=== PATIENT | male | born 1955 | race Caucasian/White ===

== ENCOUNTER 2017-02-18 05:31 | Inpatient (IN) | payer BC ==
[~2017-02-18] VITALS: Ht 198.1 cm; Wt 92.1 kg
[2017-02-18 06:40] LABS: BASOPHIL % 0.4 % (0-2); PLATELET COUNT 239 x10^3mcL (130-400)
[2017-02-18 06:57] LABS: CALCIUM 8.1 mg/dL (8.5-10.1); CHLORIDE SERUM 105 mmol/L (98-107); CREATININE SERUM 0.8 mg/dL (0.7-1.3); GFR1 > 60 mL/min; GLUCOSE SERUM 165 mg/dL (74-106); POTASSIUM SERUM 3.3 mmol/L (3.5-5.1); SODIUM SERUM 143 mmol/L (136-145)
[2017-02-18 07:01] LABS: ALBUMIN 2.5 g/dL (3.4-5.0); ALKALINE PHOSPHATASE 244 U/L (46-116); ALT/SGPT 48 U/L (16-63); AST/SGOT 91 U/L (15-37); BILIRUBIN TOTAL 2.32 mg/dL (0.20-1.00); LIPASE 929 IU/L (73-393); TOTAL PROTEIN, SERUM 6.7 g/dL (6.4-8.2)
[2017-02-18 07:23] LABS: RED CELL DISTRIBUTION WIDTH 15.7 % (11.5-14.5)
[2017-02-18] MEDS ORDERED: NALTREXONE HCL50 MG PO (07:45)
[2017-02-18] MEDS ORDERED: PEPCID40 MG PO (07:45)
[2017-02-18] MEDS ORDERED: NADOLOL40 MG PO (07:46)
[2017-02-18] MEDS ORDERED: NATURE'S BLEND F1 MG PO (07:46)
[2017-02-18] MEDS ORDERED: ROBAXIN-750750 MG PO (07:46)
[2017-02-18] MEDS ORDERED: FLUOXETINE HYDR20 M2 PO (07:47)
[2017-02-18] MEDS ORDERED: PREDNISONE20 MG PO (07:49)
[2017-02-18] MEDS ORDERED: ATIVAN0.5 M1 PO (07:50)
[2017-02-18] MEDS ORDERED: IBUPROFEN400 MG PO (07:50)
[2017-02-18] MEDS ORDERED: PENTOXIFYL XR400 M1 PO (07:51)
[2017-02-18 09:18] LABS: CHOLESTEROL/HDL RATIO 5.4
[2017-02-18 09:24] LABS: MAGNESIUM 1.3 mg/dL (1.8-2.4); PHOSPHOROUS 4.2 mg/dL (2.5-4.9)
[2017-02-18 09:26] LABS: T3 TOTAL 1.32 ng/mL
[2017-02-18 09:27] LABS: FREE T4 1.57 ng/dL (0.76-1.46); FREE THYROXINE INDEX 3.4 ug/dL (1.4-4.5); T4(THYROXINE) 9.3 ug/dL (4.7-13.3)
[2017-02-18 10:57] VITALS: BP 115/76
[2017-02-18 18:28] VITALS: BP 133/85
[2017-02-18 21:41] VITALS: BP 126/78
[2017-02-19 05:34] VITALS: BP 154/92
[2017-02-19 07:13] LABS: BASOPHIL % 0.3 % (0-2); PLATELET COUNT 164 x10^3mcL (130-400)
[2017-02-19 07:18] LABS: rbc morphology (normal/abnorm) ABNORMAL (NORMAL)
[2017-02-19 07:34] LABS: CALCIUM 7.9 mg/dL (8.5-10.1); CARBON DIOXIDE 26.6 mmol/L (21-32); CHLORIDE SERUM 107 mmol/L (98-107); CREATININE SERUM 0.7 mg/dL (0.7-1.3); GFR1 > 60 mL/min; GLUCOSE SERUM 152 mg/dL (74-106); POTASSIUM SERUM 4.2 mmol/L (3.5-5.1); SODIUM SERUM 141 mmol/L (136-145)
[2017-02-19 09:20] VITALS: BP 132/85
[2017-02-19 11:36] LABS: AMYLASE 44 U/L (25-115); LIPASE 430 IU/L (73-393)
[2017-02-19 12:22] VITALS: BP 154/97
[2017-02-19 18:16] VITALS: BP 118/71
[2017-02-19 22:08] VITALS: BP 154/95
[2017-02-20 06:18] VITALS: BP 139/89
[2017-02-20 06:29] LABS: BASOPHIL % 0.4 % (0-2); PLATELET COUNT 146 x10^3mcL (130-400)
[2017-02-20 06:38] LABS: RED CELL DISTRIBUTION WIDTH 14.8 % (11.5-14.5)
[2017-02-20 07:36] LABS: rbc morphology (normal/abnorm) ABNORMAL (NORMAL)
[2017-02-20 07:55] LABS: CARBON DIOXIDE 28.1 mmol/L (21-32); CHLORIDE SERUM 106 mmol/L (98-107); CREATININE SERUM 0.7 mg/dL (0.7-1.3); GFR1 > 60 mL/min; GLUCOSE SERUM 120 mg/dL (74-106); MAGNESIUM 1.5 mg/dL (1.8-2.4); PHOSPHOROUS 2.6 mg/dL (2.5-4.9); POTASSIUM SERUM 3.4 mmol/L (3.5-5.1); SODIUM SERUM 142 mmol/L (136-145)
[2017-02-20 08:40] VITALS: BP 123/86
[2017-02-20] MEDS ORDERED: LASIX20 MG PO (12:22)
[2017-02-20] MEDS ORDERED: ALDACTONE25 MG PO (12:22)
[2017-02-20 13:24] VITALS: BP 123/86
== END 2017-02-20 14:19 | disposition home or self-care (01) | DRG 438 ==
LOC: ED 05:31 → DU 07:19 → MU 02-20 08:55
PROVIDERS: Emergency Medicine; ADMIT Family Medicine
DX: K85.90 Acute pancreatitis without necrosis or infection, unspecified (principal); E43 Unspecified severe protein-calorie malnutrition; K70.30 Alcoholic cirrhosis of liver without ascites; E87.6 Hypokalemia; E83.51 Hypocalcemia; E83.42 Hypomagnesemia; K72.90 Hepatic failure, unspecified without coma; F41.8 Other specified anxiety disorders; M62.50 Muscle wasting and atrophy, not elsewhere classified, unspecified site; E78.5 Hyperlipidemia, unspecified; F17.210 Nicotine dependence, cigarettes, uncomplicated; Z98.1 Arthrodesis status; Z68.23 Body mass index [BMI] 23.0-23.9, adult
CPT/HCPCS: 83880; 84439; 94150; G0480; J1100; J1885; J1940; J2270; J2405; J3010; J3360; J3475; J3480; J7030; Q0092

== ENCOUNTER 2017-03-13 22:30 | Emergency (ER) | payer BC ==
[~2017-03-13 22:30] MED LIST: ALDACTONE25 MG PO; ATIVAN0.5 M1 PO; FLUOXETINE HYDR20 M2 PO; IBUPROFEN400 MG PO; LASIX20 MG PO; NADOLOL40 MG PO; NALTREXONE HCL50 MG PO; NATURE'S BLEND F1 MG PO; PENTOXIFYL XR400 M1 PO; PEPCID40 MG PO; PREDNISONE20 MG PO; ROBAXIN-750750 MG PO
[2017-03-14 00:55] VITALS: BP 115/79
== END 2017-03-14 01:09 | disposition home or self-care (01) ==
LOC: ED 22:30
DX: S01.01XA Laceration without foreign body of scalp, initial encounter (principal); I10 Essential (primary) hypertension; W17.89XA Other fall from one level to another, initial encounter; Y93.89 Activity, other specified; Y99.8 Other external cause status; Y92.89 Other specified places as the place of occurrence of the external cause
CPT/HCPCS: J2001

== ENCOUNTER 2017-04-04 16:33 | Emergency (ER) | payer BC ==
[2017-04-04 19:14] VITALS: BP 102/71
== END 2017-04-04 19:14 | disposition home or self-care (01) ==
LOC: ED 16:33
DX: R51 Headache (principal); F10.10 Alcohol abuse, uncomplicated; I10 Essential (primary) hypertension; F41.9 Anxiety disorder, unspecified; Z79.899 Other long term (current) drug therapy; Z87.828 Personal history of other (healed) physical injury and trauma